=== PATIENT | male | born 1995 | race African-American/Black ===

== ENCOUNTER 2020-09-09 00:27 | Emergency (ER) | payer OTHER, MEDICAID ==
[~2020-09-09] VITALS: Ht 185.4 cm; Wt 106.6 kg
[2020-09-09 00:35] VITALS: BP 142/109
[2020-09-09] MEDS ORDERED: ACETAMINOPHEN EXTRA STRENGTH 500 MG TAB PO ONE (02:25)
[2020-09-09] MEDS ORDERED: IBUP-1842 PO (05:13)
[2020-09-09] MEDS ORDERED: ACET-9882 PO (05:13)
[2020-09-09 05:18] VITALS: BP 142/109
== END 2020-09-09 05:18 | disposition home or self-care (01) ==
LOC: MED 00:27
DX: S09.93XA Unspecified injury of face, initial encounter (principal); Y04.8XXA Assault by other bodily force, initial encounter; Y93.89 Activity, other specified; Y92.89 Other specified places as the place of occurrence of the external cause; Y99.8 Other external cause status
CPT/HCPCS: 70450; 70486; 72125; 99285